=== PATIENT | female | born 1955 | race Caucasian/White ===

== ENCOUNTER → 2016-11-10 | Outpatient (CLI) | payer OTHER ==
[~2016-11-10] MED LIST: ALBU18002 INH; ALBUAER INH; ASMIN/30 INH; CETI10CA PO; CETI10TA84 PO; CYCL10TA6 PO; CYM/30 PO; CYM60 PO; FLVHFA110 INH; LEVO25TA34 PO; LEVO88TA3 PO; MOME50SP5; MOME6000 NAE; PANT40TA PO; PANT40TA2 PO; PRAV10TA39 PO; PRAV20TA PO; PRM/45 PO; RANI300T2 PO; SOLI10TA2 PO; TRAM-10 PO
--- NOTE | 2016-11-10 16:42 | MAMMOGRAPHY REPORT ---
BILATERAL DIGITAL SCREENING MAMMOGRAM WITH CAD: 11/10/2016 CLINICAL HISTORY: Routine screening. Patient has no complaints. TECHNIQUE: Current study was also evaluated with a Computer Aided Detection (CAD) system. Bilatera l CC and MLO and left XCCL views were obtained. COMPARISON: Comparison is made to exams dated: 10/26/2015 mammogram, 10/23/2014 mammogram, 10/14/2013 mammogram, 09/30/2012 mammogram, 03/17/2011 mammogram, and 09/30/2009 mammogram - [facility] enter. BREAST COMPOSITION: There are scattered areas of fibroglandular density in both breasts. FINDINGS: No suspicious masses, calcifications, or areas of architectural distortion are noted in e ither breast. There has been no significant interval change compared to prior exams. IMPRESSION: ACR BI-RADS CATEGORY 2: BENIGN There is no mammographic evidence of malignancy. A 1 year screening mammogram is recommended. The p atient will receive written notification of the results. Approximately 10% of breast cancers are not detected with mammography. A negative mammographic repor t should not delay biopsy if a clinically suggestive mass is present. Lottie Quinn M.D. /:11/10/2016 16:10:00 Local Sales Manager: Dahiana MARTINEZ(Sania)(Nayeli)([place]), [facility] letter sent: Normal 1/2 BI-RADS Code: ACR BI-RADS Category 2: Benign
== END | disposition home or self-care (01) ==
LOC: C.MAMM 14:55
PROVIDERS: ATTEND Family Medicine
DX: Z12.31 Encounter for screening mammogram for malignant neoplasm of breast (principal)

== ENCOUNTER 2017-03-09 15:06 | Emergency (ER) | payer OTHER ==
[~2017-03-09] VITALS: Ht 165.1 cm; Wt 88.7 kg
[~2017-03-09 15:06] MED LIST changes: -ALBU18002 INH; -ASMIN/30 INH; -CETI10CA PO; -CYCL10TA6 PO; -CYM/30 PO; -CYM60 PO; -LEVO88TA3 PO; -MOME6000 NAE; -PANT40TA2 PO; -PRAV10TA39 PO; -TRAM-10 PO
[2017-03-09 15:09] VITALS: TEMP 36.9; Ht 165.1 cm; Wt 88.7 kg
[2017-03-09] MEDS ORDERED: ACETAMINOPHEN 500 MG TAB PO ONE (16:12)
--- NOTE | 2017-03-09 16:14 | DIAGNOSTIC IMAGING REPORT ---
L-SPINE MIN 4 VIEWS ROUTINE HISTORY: Back pain s/p fall from bed 2 wks ago COMPARISON: None. FINDINGS: There is no fracture. No subluxation. Considerable degenerative disc changes throughout. IMPRESSION: Considerable degenerative change. No acute compression deformity. The above report was generated using voice recognition software. It may contain grammatical, syntax or spelling errors. Electronically signed by: Juwan Rubin M.D. 03/09/2017 4:12 PM Dictated Date/Time: 03/09/2017 4:12 PM
--- NOTE | 2017-03-09 16:15 | DIAGNOSTIC IMAGING REPORT ---
CERVICAL SPINE 5 VIEWS HISTORY: Back pain s/p fall from bed 2 wks ago COMPARISON: None. FINDINGS: The cervical spine is visualized from C1 through the superior endplate of T1. There is no fracture. No subluxation. Moderate to space narrowing and endplate osteophytes at C5-C6 and C6-C7. Mild to moderate neural foraminal narrowing at C5-C6 and C6-C7. Prevertebral soft tissues and the atlantodens interval are intact. IMPRESSION: No fracture or subluxation within the cervical spine. Electronically signed by: Paulino Jason M.D. 03/09/2017 4:13 PM Dictated Date/Time: 03/09/2017 4:10 PM
--- NOTE | 2017-03-09 16:15 | DIAGNOSTIC IMAGING REPORT ---
THORACIC SPINE 3 VIEWS ROUTINE HISTORY: Trauma. Pain. Back pain s/p fall from bed 2 wks ago COMPARISON: None. FINDINGS: There is no fracture. No subluxation. Moderate degenerative disc change throughout. IMPRESSION: Degenerative change. No acute process. The above report was generated using voice recognition software. It may contain grammatical, syntax or spelling errors. Electronically signed by: Juwan Rubin M.D. 03/09/2017 4:13 PM Dictated Date/Time: 03/09/2017 4:13 PM
[2017-03-09] MEDS ORDERED: ALBU18002 INH (16:17)
[2017-03-09] MEDS ORDERED: PRT/40 PO (16:17)
[2017-03-09] MEDS ORDERED: ASMIN/30 INH (16:17)
[2017-03-09] MEDS ORDERED: LEVO88TA3 PO (16:17)
[2017-03-09] MEDS ORDERED: MOME6000 NAE (16:17)
[2017-03-09] MEDS ORDERED: PRAV10TA39 PO (16:17)
[2017-03-09] MEDS ORDERED: CETI10CA PO (16:17)
[2017-03-09] MEDS ORDERED: CYCL10TA6 PO (16:30)
[2017-03-09] MEDS ORDERED: TRAM-10 PO (16:30)
[2017-03-09 16:53] VITALS: BP 142/83; PULSE 51; O2SAT 97
--- NOTE | 2017-03-09 17:39 | EMERGENCY ROOM VISIT NOTE ---
History First contact with patient: 15:33 Chief Complaint: BACK PAIN Stated Complaint: STABBING BACK PAIN History of Present Illness The patient is a 61 year old female who presents to the Emergency Room with complaints of back pain from her neck to her tailbone. The patient reports that she fell out of bed 2 weeks ago while trying to shut off her alarm clock. She thought that she fell more onto her right side, but reports that she has had persistent and now worsening pain since her fall. She denies history of osteoporosis. She has had a prior history of vertebral compression fracture. She has not noticed any pain radiating down the extremities. She denies any paresthesias, numbness or burning of the extremities. She denies any bladder/ bowel difficulties/incontinence, saddle anesthesias or extremity weakness. Her pain is worsened with movement and sitting for long periods of time. She has tried topical ointments, heat and Tylenol without any significant relief. She rates her discomfort a 4 out of 10. Review of Systems 10 system review was performed and was negative except for pertinent positives and negatives as indicated in history of present illness Social History Smoking Status: Never Smoker Current/Historical Medications Scheduled Cetirizine Hcl (Zyrtec Allergy), 10 MG PO HS Duloxetine HCl (Cymbalta), 30 MG PO BID Levothyroxine Sodium (Levothyroxine Sodium), 88 MCG PO DAILY Pantoprazole (Pantoprazole Sodium), 40 MG PO DAILY Pravastatin Sodium (Pravastatin Sodium), 5 MG PO HS Solifenacin (Vesicare), 10 MG PO DAILY Scheduled PRN Albuterol Sulfate (Proair Respiclick), 2 PUFFS INH Q4H PRN for Cough/SOB/ Wheezing Cyclobenzaprine Hcl (Flexeril), 10 MG PO TID PRN for spasm Mometasone Furoate (Asmanex Twisthaler 30 Me), 1 PUFF INH DAILY PRN for SOB/ Wheezing Mometasone Furoate (Nasal) (Mometasone Furoate), 2 SPRAYS MARIALUISA BID PRN for Allergy Symptoms Tramadol (Ultram), 1 TAB PO Q4H PRN for Pain Physical Exam Vital Signs Date Time Temp Pulse Resp B/P (MAP) Pulse Ox O2 Delivery O2 Flow Rate FiO2 03/09/17 16:53 51 18 142/83 97 03/09/17 15:09 36.9 60 16 140/92 96 Room Air Physical Exam CONSTITUTIONAL: Healthy and well nourished. Alert and oriented X 3 with positive affect. Patient does not appear in any significant distress on exam. HEENT: Normocephalic, atraumatic. Pupils equal, round and reactive. NECK: Full active range of motion without significant discomfort. She has minimal tenderness to palpation of the cervical musculature. No focal tenderness to the central cervical spine. RESPIRATORY: Clear to auscultation bilaterally with no wheezing, crackles, rhonchi or stridor. CARDIOVASCULAR: Regular rate and rhythm with no murmurs, rubs or gallops. GASTROINTESTINAL: Bowel sounds present in all quadrants. Soft and nontender to palpation. MUSCULOSKELETAL: Examination shows a little tenderness to palpation through the central thoracic spine or paraspinous muscles. She is notably tender through the lower central lumbar spine and left paraspinous muscle. No obvious palpable spasm or central step off. No tenderness to palpation through the SI joints or sciatic notches. Negative logroll. Negative sitting straight leg raise. Ankle plantar/dorsiflexion strength is 5 out of 5 and symmetric bilaterally. INTEGUMENTARY: No rash or other significant dermatologic conditions noted. NEUROLOGIC: No focal neurologic deficits noted. Extremities are sensory intact. Medical Decision & Procedures ER Provider Diagnostic Interpretation: My interpretation of cervical spine, thoracic and lumbar spine x-rays does not show any acute fractures. Degenerative changes are noted. Radiologist reports were also reviewed with concurrence. Medications Administered Medications (Trade) Dose Ordered Sig/Dorcas Route Start Time Stop Time Status Last Admin Dose Admin Acetaminophen (Tylenol Tab) 1,000 mg STK-MED ONCE PO 03/09/17 16:12 03/09/17 16:13 DC 03/09/17 16:15 1,000 MG ED Course Patient history and physical exam were performed. Nurse's notes were reviewed. Vital signs were reviewed, showing an elevated blood pressure of 140/92. Remaining labs are normal. The patient refused any analgesics on initial exam. X-rays of the cervical, thoracic and lumbar spine were normal. I explained to the patient that her symptoms are likely secondary to muscle spasm. After returning from x-ray, she did request Tylenol, and was administered Tylenol 1 g orally. She was encouraged to alternate ice and heat to the back. The patient reports that ibuprofen upsets her stomach. She was encouraged to take Tylenol for baseline pain relief, and was provided prescriptions for tramadol and Flexeril. She was instructed to avoid taking both medications simultaneously. She denies any history of seizures. The patient was also instructed to avoid sitting for long periods of time, or heavy lifting. She was encouraged to follow-up with her PCP or orthopedics as needed for any persistent pain. The patient reports that she already has an appointment scheduled for Sunday with orthopedics. The patient voiced understanding of all discharge instructions, and rated her discomfort a 4 out of 10 at the time of discharge. Medical Decision Impression Primary Impression: Acute back pain Additional Impression: Fall from bed, initial encounter Departure Information Prescriptions Cyclobenzaprine Hcl (FLEXERIL) 10 Mg Tab 10 MG PO TID Y for spasm, #15 TAB Prov: Bassam Pedro PA 03/09/17 Tramadol (Ultram) 50 Mg Tab 1 TAB PO Q4H Y for Pain, #20 TAB For Initial Treatment Prov: Bassam Pedro PA 03/09/17 Referrals Peng Acosta M.D. (PCP) Patient Instructions My [facility] Problem Qualifiers
[2017-03-09] MEDS ORDERED: CYM/30 PO (20:43)
== END 2017-03-09 16:50 | disposition home or self-care (01) ==
LOC: C.EDB 15:07 → C.EDA 16:50
DX: M54.9 Dorsalgia, unspecified (principal); W06.XXXA Fall from bed, initial encounter; Y92.003 Bedroom of unspecified non-institutional (private) residence as the place of occurrence of the external cause; Z79.899 Other long term (current) drug therapy

== ENCOUNTER 2017-04-19 11:46 | Emergency (ER) | payer OTHER ==
[~2017-04-19] VITALS: Ht 165.1 cm; Wt 84.9 kg
[~2017-04-19 11:46] MED LIST changes: +ALBU18002 INH; -ALBUAER INH; +ASMIN/30 INH; +CETI10CA PO; -CETI10TA84 PO; +CYM/30 PO; -FLVHFA110 INH; -LEVO25TA34 PO; +LEVO88TA3 PO; -MOME50SP5; +MOME6000 NAE; -PANT40TA PO; +PRAV10TA39 PO; -PRAV20TA PO; -PRM/45 PO; +PRT/40 PO; -RANI300T2 PO; +TRAM-10 PO
[2017-04-19 11:53] VITALS: TEMP 37; Ht 165.1 cm; Wt 84.9 kg
[2017-04-19] MEDS ORDERED: DiphenhydrAMINE HCL 50 MG/ML VIAL IV STA (12:18)
[2017-04-19] MEDS ORDERED: PROCHLORPERAZINE 5 MG/ML 2 ML VIAL IV STA (12:18)
[2017-04-19] MEDS ORDERED: SODIUM CHLORIDE 0.9% 500ML 500 ML IV STA (12:18)
[2017-04-19] MEDS ORDERED: METHYLPREDNISOLONE 125 MG VIAL IV STA (12:18)
[2017-04-19] MEDS ORDERED: SODIUM CHLORIDE 0.9% 1000ML 1,000 ML IV STA (12:18)
--- NOTE | 2017-04-19 12:21 | EMERGENCY ROOM VISIT NOTE ---
History Report prepared by Amado: Jeet Lujan Under the Supervision of: Dr. Ariella Calvillo M.D. First contact with patient: 12:06 Chief Complaint: HEADACHE Stated Complaint: VERGARA, DIZZY-DR. LEGER WANTS TESTING DONE FOR THESE History of Present Illness The patient is a 61 year old female who presents to the Emergency Room with complaints of a resolving headache that started 5 days ago. She says that while having sex with her when she had a sudden onset of pain at the base of her skull centrally with dizziness. The patient states that the headache was a throbbing pain but was not sharp, and there was no radiation down her neck. She denies any changes in her vision. The patient adds that she later got nauseated and vomited. She describes her dizziness as feeling like she would pass out. The patient also denies stroke-like symptoms. The patient notes that the headache lasted for 3 days, and has since became much less, but she still has a bit of pain on the back of her head. She states that she is also still a bit dizzy with certain positions. She adds that she is no longer nauseated, and she denies any palpitations or shortness of breath. The patient saw her primary care physician (Dr. Leger) 3 days ago, and had a CT done 2 days ago which was normal. Dr. Leger sent the patient in today. She does not take any blood thinners or Aspirin. Source of History: patient Onset: 5 days ago Position: head (base of skull centrally) Quality: other (throbbing) Timing: other (resolving) Associated Symptoms: + nausea (no longer nauseated however), + vomiting, No neck pain, No SOB Note: Associated symptoms: Dizziness. Denies palpitations. Review of Systems See HPI for pertinent positives & negatives. A total of 10 systems reviewed and were otherwise negative. Past Medical & Surgical Medical Problems: (1) Arthritis (2) Hypothyroidism Family History Cancer Diabetes mellitus FH: Alzheimers disease Gallbladder disease Heart disease Kidney disease Social History Smoking Status: Never Smoker Alcohol Use: none Marital Status: Housing Status: lives with family Occupation Status: retired Current/Historical Medications Scheduled Cetirizine Hcl (Zyrtec Allergy), 10 MG PO HS Duloxetine HCl (Duloxetine HCl), 60 MG PO DAILY Levothyroxine Sodium (Levothyroxine Sodium), 88 MCG PO DAILY Pantoprazole (Pantoprazole Sodium), 40 MG PO DAILY Pravastatin Sodium (Pravastatin Sodium), 5 MG PO HS Solifenacin (Vesicare), 10 MG PO DAILY Scheduled PRN Albuterol Sulfate (Proair Respiclick), 2 PUFFS INH Q4H PRN for Cough/SOB/ Wheezing Mometasone Furoate (Asmanex Twisthaler 30 Me), 1 PUFF INH DAILY PRN for SOB/ Wheezing Mometasone Furoate (Nasal) (Mometasone Furoate), 2 SPRAYS MARIALUISA BID PRN for Allergy Symptoms Allergies Coded Allergies: Latex1 -Allergic Contact Dermititis (Verified Allergy, Mild, QUESTIONABLE LATEX ALLERGY, 09/23/15) PATIENT STATES SHE DOES NOT KNOW WHY THIS WAS ENTERED (09/23/15) Codeine (Verified Allergy, Unknown, DEPRESSANT, 09/23/15) Iodine (Verified Allergy, Unknown, `, 09/23/15) Physical Exam Vital Signs Date Time Temp Pulse Resp B/P (MAP) Pulse Ox O2 Delivery O2 Flow Rate FiO2 04/19/17 16:11 62 20 123/79 99 04/19/17 14:43 57 16 148/82 95 Room Air 04/19/17 13:08 54 04/19/17 13:06 53 20 124/68 97 Room Air 04/19/17 11:53 37.0 67 20 123/87 96 Room Air Physical Exam Vital signs reviewed. General: Well-appearing 61 year old female, in no significant distress. HEENT: No scleral icterus, PERRLA, neck supple. Atraumatic. Cardiovascular: Regular rate and rhythm, no extra sounds. Pulmonary: Clear to auscultation bilaterally, normal work of breathing. Abdomen: Soft, nontender, nondistended, positive bowel sounds. Musculoskeletal: Atraumatic, no peripheral edema. Neurologic: Patient awake alert and oriented x 3, full strength in all 4 extremities. Cranial nerves 2 through 12 grossly intact. Cerebellar exam intact. Mild increase vertiginous Sx with extension of the neck Skin: Warm, dry, no rash Medical Decision & Procedures ER Provider Diagnostic Interpretation: Radiology results as stated below per my review and radiologist interpretation: HEAD CTA HISTORY: Headache. Dizziness. TECHNIQUE: Multiaxial CT images of the head were performed both before and after the intravenous administration of contrast to evaluate the major cerebral vessels. Maximum intensity projection images were also obtained. A dose lowering technique was utilized adhering to the principles of ALARA. COMPARISON: Head CT 08/22/2006. FINDINGS: There is no mass, hematoma, midline shift, or acute infarct. Visualized intracranial internal carotid arteries, distal vertebral arteries, and basilar artery are widely patent. There is no significant stenosis, occlusion, or aneurysm seen within the bilateral ACAs, MCAs, or commercial loan coordinator. IMPRESSION: No significant stenosis, occlusion, or aneurysm within the [place]. Electronically signed by: Paulino Jason M.D. 04/19/2017 2:06 PM Dictated Date/Time: 04/19/2017 1:[address] ANGIOGRAM OF THE NECK CLINICAL HISTORY: Postcoital headache and dizziness. COMPARISON STUDY: No priors. TECHNIQUE: Following the IV administration of 120 of Optiray 320, CT angiogram of the neck was performed from the aortic arch to the skull base. Images are reviewed in the axial, sagittal, and coronal planes. 3-D MIPS images are created and assessed. IV contrast was administered without complication. All measurements were calculated based on NASCET criteria. A dose lowering technique was utilized adhering to the principles of ALARA. FINDINGS: Thoracic aorta: Visualized portions of the thoracic aorta are normal in caliber. The aortic arch demonstrates standard 3-vessel anatomy. Subclavian arteries: Widely patent bilaterally. Right carotid arterial system: The right common carotid artery is widely patent, as are the right internal and external carotid arteries. Left carotid arterial system: The left common carotid artery is widely patent, as are the left internal and external carotid arteries. There is tortuosity of the distal left internal carotid artery. Vertebral arteries: Widely patent bilaterally. The vertebral arteries in the neck are codominant. Intracranial vasculature: The partially visualized intracranial vessels at the skull base are patent. Jugular veins: Widely patent bilaterally. Brain parenchyma: The visualized brain parenchyma the skull base is within normal limits. Lung apices: Partially visualized upper lobe lung parenchyma appears clear. Soft tissues: The visualized pharyngeal soft tissues are normal in appearance noting angiographic phase technique. The oropharyngeal airway appears widely patent. The salivary and thyroid glands are normal in appearance. No cervical lymphadenopathy is seen. Skeletal structures: The skeletal structures are osteopenic. The visualized calvarium at the skull base is within normal limits. The cervical spine appears intact noting mild multilevel spondylosis. IMPRESSION: Unremarkable CT angiogram of the neck. Electronically signed by: Tommie Figueredo M.D. 04/19/2017 2:04 PM Dictated Date/Time: 04/19/2017 1:58 PM Laboratory Results 04/19/17 12:26 Red Blood Count 4.61, Mean Corpuscular Volume 87.2, Mean Corpuscular Hemoglobin 29.5, Mean Corpuscular Hemoglobin Concent 33.8, Mean Platelet Volume 13.1, Neutrophils (%) (Auto) 56.6, Lymphocytes (%) (Auto) 31.6, Monocytes (%) (Auto) 8.3, Eosinophils (%) (Auto) 2.7, Basophils (%) (Auto) 0.6, Neutrophils # (Auto) 2.72, Lymphocytes # (Auto) 1.52, Monocytes # (Auto) 0.40, Eosinophils # (Auto) 0.13, Basophils # (Auto) 0.03 04/19/17 12:26 Test 04/19/17 12:26 White Blood Count 4.81 K/uL (4.8-10.8) Red Blood Count 4.61 M/uL (4.2-5.4) Hemoglobin 13.6 g/dL (12.0-16.0) Hematocrit 40.2 % (37-47) Mean Corpuscular Volume 87.2 fL (80-100) Mean Corpuscular Hemoglobin 29.5 pg (25-34) Mean Corpuscular Hemoglobin Concent 33.8 g/dl (32-36) Platelet Count 188 K/uL (130-400) Mean Platelet Volume 13.1 fL (7.4-10.4) Neutrophils (%) (Auto) 56.6 % Lymphocytes (%) (Auto) 31.6 % Monocytes (%) (Auto) 8.3 % Eosinophils (%) (Auto) 2.7 % Basophils (%) (Auto) 0.6 % Neutrophils # (Auto) 2.72 K/uL (1.4-6.5) Lymphocytes # (Auto) 1.52 K/uL (1.2-3.4) Monocytes # (Auto) 0.40 K/uL (0.11-0.59) Eosinophils # (Auto) 0.13 K/uL (0-0.5) Basophils # (Auto) 0.03 K/uL (0-0.2) RDW Standard Deviation 41.7 fL (36.4-46.3) RDW Coefficient of Variation 13.0 % (11.5-14.5) Immature Granulocyte % (Auto) 0.2 % Immature Granulocyte # (Auto) 0.01 K/uL (0.00-0.02) Anion Gap 6.0 mmol/L (3-11) Est Creatinine Clear Calc Drug Dose 74.6 ml/min Estimated GFR () 87.0 Estimated GFR (Non- 75.0 BUN/Creatinine Ratio 17.5 (10-20) Calcium Level 9.1 mg/dl (8.5-10.1) Total Bilirubin 0.4 mg/dl (0.2-1) Direct Bilirubin < 0.1 mg/dl (0-0.2) Aspartate Amino Transf (AST/SGOT) 17 U/L (15-37) Alanine Aminotransferase (ALT/SGPT) 17 U/L (12-78) Alkaline Phosphatase 63 U/L (45-117) Total Protein 7.4 gm/dl (6.4-8.2) Albumin 3.7 gm/dl (3.4-5.0) Laboratory results per my review. Medications Administered Medications (Trade) Dose Ordered Sig/Dorcas Route Start Time Stop Time Status Last Admin Dose Admin Diphenhydramine HCl (Benadryl Inj) 25 mg NOW STAT IV 04/19/17 12:18 04/19/17 12:21 DC 04/19/17 13:01 25 MG Methylprednisolone Sodium Succinate (Solu-Medrol IV) 125 mg NOW STAT IV 04/19/17 12:18 04/19/17 12:21 DC 04/19/17 13:00 125 MG Sodium Chloride 500 ml @ 999 mls/hr Q31M STAT IV 04/19/17 12:18 04/19/17 12:48 DC 04/19/17 12:18 999 MLS/HR Sodium Chloride 1,000 ml @ 125 mls/hr Q8H STAT IV 04/19/17 12:18 04/19/17 16:35 DC 04/19/17 13:00 125 MLS/HR Prochlorperazine Edisylate 10 mg/ Syringe 10 ml @ 5 mls/min NOW ONCE IV 04/19/17 12:45 10/19/17 12:46 DC 04/19/17 13:00 5 MLS/MIN ECG Indication: nausea Rate (beats per minute): 51 Rhythm: sinus bradycardia Findings: no acute ischemic change, left axis deviation, no ectopy ED Course 1210: Past medical records reviewed. The patient was evaluated in room B9. A complete history and physical examination was performed. 1218: Ordered NSS 1000 ml @ 125 mls/hr IV, NSS 500 ml @ 999 mls/hr IV, Solu- Medrol IV 125 mg IV, Benadryl Inj 25 mg IV, Compazine Inj 10 mg IV. 1245: Ordered Prochlorperazine Edisylate 10 mg/Syringe 10 ml @ 5 mls/min IV. 1445: Upon reevaluation, the patient appeared to have improvement of her symptoms. I discussed findings with her. She verbalized agreement of the treatment plan. She will be discharged home. 1452: I discussed the patient with Dr. Karla Robertson [facility]. Medical Decision Differential diagnosis: Intracranial hemorrhage, intracranial mass, migraine headache, tension headache , sinusitis, meningitis This patient was evaluated and appeared to be in no significant distress. IV access was obtained and laboratory work was drawn. Patient was placed on the alarm security or surveillance monitor and found to be in a normal sinus rhythm. Patient's physical examination is fairly unrevealing with the exception of an increase in vertiginous symptoms with full extension of the neck. Patient's vital signs have remained stable. CT angiogram of the head and neck are negative for acute findings. The patient's headache has been persistent for 5 days. I do not think this represents a subarachnoid hemorrhage as she had a negative CT 2 days ago and again today. The patient's headache has improved through the duration of the 5 day period. The above medications have taken the maintaining her discomfort away. I did speak with Dr. Leger, the patient's PCP who seems happy with the workup in the emergency department. Patient was discharged and asked to follow-up with her PCP this week for reevaluation. She will return to the ER for worsening of symptoms or any medical concerns. Medication Reconcilliation Current Medication List: was personally reviewed by me Blood Pressure Screening Patient's blood pressure: Normal blood pressure Consults Time Called: 1445 Consulting Physician: Dr. Karla [facility] Returned Call: 1452 I discussed the patient with Dr. Leger - [facility]. Impression Primary Impression: Headache associated with sexual activity Scribe Attestation The scribe's documentation has been prepared under my direction and personally reviewed by me in its entirety. I confirm that the note above accurately reflects all work, treatment, procedures, and medical decision making performed by me. Departure Information Dispostion Home / Self-Care Referrals Peng Leger M.D. (PCP) Patient Instructions [facility] Additional Instructions Diagnosis: Headache Please drink plenty of fluids. Tylenol 650 mg every 6 hours as needed for pain. Ibuprofen 600 mg every 6 hours as needed for pain with food. Follow up with Dr Leger this week for reevaluation if symptoms continue Return to the ED for worsening of symptoms or any medical concerns.
[2017-04-19 12:40] LABS: BASO % 0.6 %; BASO ABS # 0.03 K/uL (0-0.2); COMPLETE YES; EOS % 2.7 %; HEMATOCRIT 40.2 % (37-47); IG% 0.2 %; LYMPH % 31.6 %; LYMPH ABS # 1.52 K/uL (1.2-3.4); MEAN CELL VOLUME 87.2 fL (80-100); MEAN CORPUSCULAR HEMOGLOBIN 29.5 pg (25-34); MEAN CORPUSCULAR HGB CONC 33.8 g/dl (32-36); MEAN PLATELET VOLUME 13.1 fL (7.4-10.4); MONO % 8.3 %; NEUT % 56.6 %; PLATELET COUNT 188 K/uL (130-400); RED BLOOD COUNT 4.61 M/uL (4.2-5.4); WHITE BLOOD COUNT 4.81 K/uL (4.8-10.8)
[2017-04-19] MEDS ORDERED: CYM60 PO (12:42)
[2017-04-19] MEDS ORDERED: OPTIRAY 320 IV PRN (12:45)
[2017-04-19] MEDS ORDERED: PROCHLORPERAZINE INJ 10 MG in SYRINGE 8 ML IV ONE (12:45)
[2017-04-19 12:57] LABS: ALT/SGPT 17 U/L (12-78); BLOOD UREA NITROGEN 15 mg/dl (7-18); BUN/CREATININE RATIO 17.5 (10-20); CALCIUM 9.1 mg/dl (8.5-10.1); CARBON DIOXIDE 27 mmol/L (21-32); CHLORIDE 102 mmol/L (98-107); CREATININE 0.83 mg/dl (0.60-1.20); GLUCOSE 85 mg/dl (70-99); POTASSIUM 4.2 mmol/L (3.5-5.1); SODIUM 135 mmol/L (136-145)
[2017-04-19 13:00] LABS: ALKALINE PHOSPHATASE 63 U/L (45-117); AST/SGOT 17 U/L (15-37)
--- NOTE | 2017-04-19 14:05 | DIAGNOSTIC IMAGING REPORT ---
CT ANGIOGRAM OF THE NECK CLINICAL HISTORY: Postcoital headache and dizziness. COMPARISON STUDY: No priors. TECHNIQUE: Following the IV administration of 120 of Optiray 320, CT angiogram of the neck was performed from the aortic arch to the skull base. Images are reviewed in the axial, sagittal, and coronal planes. 3-D MIPS images are created and assessed. IV contrast was administered without complication. All measurements were calculated based on NASCET criteria. A dose lowering technique was utilized adhering to the principles of ALARA. FINDINGS: Thoracic aorta: Visualized portions of the thoracic aorta are normal in caliber. The aortic arch demonstrates standard 3-vessel anatomy. Subclavian arteries: Widely patent bilaterally. Right carotid arterial system: The right common carotid artery is widely patent, as are the right internal and external carotid arteries. Left carotid arterial system: The left common carotid artery is widely patent, as are the left internal and external carotid arteries. There is tortuosity of the distal left internal carotid artery. Vertebral arteries: Widely patent bilaterally. The vertebral arteries in the neck are codominant. Intracranial vasculature: The partially visualized intracranial vessels at the skull base are patent. Jugular veins: Widely patent bilaterally. Brain parenchyma: The visualized brain parenchyma the skull base is within normal limits. Lung apices: Partially visualized upper lobe lung parenchyma appears clear. Soft tissues: The visualized pharyngeal soft tissues are normal in appearance noting angiographic phase technique. The oropharyngeal airway appears widely patent. The salivary and thyroid glands are normal in appearance. No cervical lymphadenopathy is seen. Skeletal structures: The skeletal structures are osteopenic. The visualized calvarium at the skull base is within normal limits. The cervical spine appears intact noting mild multilevel spondylosis. IMPRESSION: Unremarkable CT angiogram of the neck. Electronically signed by: Tommie Figueredo M.D. 04/19/2017 2:04 PM Dictated Date/Time: 04/19/2017 1:58 PM
--- NOTE | 2017-04-19 14:08 | DIAGNOSTIC IMAGING REPORT ---
HEAD CTA HISTORY: Headache. Dizziness. TECHNIQUE: Multiaxial CT images of the head were performed both before and after the intravenous administration of contrast to evaluate the major cerebral vessels. Maximum intensity projection images were also obtained. A dose lowering technique was utilized adhering to the principles of ALARA. COMPARISON: Head CT 08/22/2006. FINDINGS: There is no mass, hematoma, midline shift, or acute infarct. Visualized intracranial internal carotid arteries, distal vertebral arteries, and basilar artery are widely patent. 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 IMPRESSION: No significant stenosis, occlusion, or aneurysm within the [place]. Electronically signed by: Paulino Jason M.D. 04/19/2017 2:06 PM Dictated Date/Time: 04/19/2017 1:58 PM
[2017-04-19 16:11] VITALS: BP 123/79; PULSE 62; O2SAT 99
== END 2017-04-19 16:14 | disposition home or self-care (01) ==
LOC: C.EDB 11:47
DX: G44.82 Headache associated with sexual activity (principal); E03.9 Hypothyroidism, unspecified; M19.90 Unspecified osteoarthritis, unspecified site; Z80.9 Family history of malignant neoplasm, unspecified; Z83.3 Family history of diabetes mellitus; Z84.1 Family history of disorders of kidney and ureter; Z79.899 Other long term (current) drug therapy

== ENCOUNTER → 2017-06-04 | Outpatient (CLI) | payer OTHER ==
[~2017-06-04] MED LIST changes: -CYM/30 PO; +CYM60 PO; +GADAVIST IV PRN; +PANT40TA2 PO; -PRT/40 PO; -TRAM-10 PO
--- NOTE | 2017-06-04 13:47 | DIAGNOSTIC IMAGING REPORT ---
LOWER EXT NONJOINT COMBO CLINICAL HISTORY: LOCALIZED SWELLING,MASS OF LOWER RIGHT LEG *IV CO* TECHNIQUE: MRI multi axial acquisition pre and post contrast administration COMPARISON STUDY: None. FINDINGS: The signal characteristics of the osseous as well as soft tissue structures are unremarkable. There is no significant bone marrow replacing process. All major ligamentous and tendinous structures are intact. There is no evidence for mass or collection. There is no abnormal postcontrast enhancement. Signal characteristics the subcutaneous fat are unremarkable. IMPRESSION: Negative study. No evidence for mass or collection by MRI criteria. If a mass is felt clinically, follow-up should be performed despite a negative MRI report The above report was generated using voice recognition software. It may contain grammatical, syntax or spelling errors. Electronically signed by: Juwan Rubin M.D. 06/04/2017 1:46 PM Dictated Date/Time: 06/04/2017 1:37 PM
== END | disposition home or self-care (01) ==
LOC: C.MRI 10:57
PROVIDERS: ATTEND Surgery
DX: R22.41 Localized swelling, mass and lump, right lower limb (principal)